=== PATIENT | male | born 1965 | race Caucasian/White ===

== ENCOUNTER → 2019-02-13 14:06 | Outpatient (CLI) | payer OTHER, SELFPAY ==
[2019-02-13 14:34] LABS: Add Manual Diff / Slide Review NO; Basophils Absolute Auto 100 /uL (0-100); Basophils Percent Auto 0.9 % (0-2); Eosinophils Absolute Auto 100 /uL (0-450); Eosinophils Percent Auto 1.1 % (2-4); Hematocrit 44.6 % (41-53); Hemoglobin 14.8 g/dL (13.5-17.5); Lymphocytes Absolute Auto 1100 /uL (1100-4500); Lymphocytes Percent Auto 14.4 % (25-40); Mean Corpuscular HGB Conc 33.2 % (30-36); Mean Corpuscular Hemoglobin 31.2 PG (26-34); Monocytes Absolute Auto 900 /uL (0-900); Monocytes Percent Auto 11.3 % (3-14); Neutrophils Absolute Auto 5500 /uL (1500-7000); Neutrophils Percent Auto 72.3 % (50-75); Platelet Count 142 X10^3/uL (150-400); Red Blood Cell Count 4.75 X10^6/uL (4.5-5.9); White Blood Cell Count 7.6 X10^3/uL (4.5-11.0)
== END ==
PROVIDERS: Orthopaedic Surgery Orthopaedic Surgery of the Spine; PCP Preventive Medicine Public Health & General Preventive Medicine; Visit Provider Preventive Medicine Public Health & General Preventive Medicine
DX: Z01.818 Encounter for other preprocedural examination (principal); L45 Papulosquamous disorders in diseases classified elsewhere
CPT/HCPCS: 36415; 85025

== ENCOUNTER 2019-02-21 10:50 | Day surgery (SDC) | payer OTHER, SELFPAY ==
[2019-02-14 14:45] VITALS: BMI 32.1
[2019-02-21] VITALS (10 sets, daily range): BP systolic 127–166; BP diastolic 77–98; PULSE 83–100; RESP 12–20; TEMP 36.2–36.8; O2SAT 92–97; BMI 31.3
--- NOTE | 2019-02-21 | DI.RAD.S_ITS ---
PROCEDURE: XR LUMBAR SPINE 2-3V INDICATIONS: L4-5 LAMINECTOMY TECHNIQUE: 2 intraoperative fluoroscopic views of the lumbar spine were acquired. COMPARISON: None. FINDINGS: Intraoperative fluoroscopic images of lower lumbar spine shows surgical instrument placed in left posterior aspect of L4-5 level. IMPRESSION: Fluoroscopy guidance was provided intraoperatively for L4-5 laminectomy. Dictated by: Sedrick Champion M.D. on 02/21/2019 at 15:28 Approved by: Sedrick Champion M.D. on 02/21/2019 at 15:31
[2019-02-21] MEDS: LACTATED RINGERS 1,000 ML 42 ML IV ×2 (11:51→13:43)
[2019-02-21] MEDS: MIDAZOLAM 2 MG/2 ML VIAL IV (12:34)
[2019-02-21] MEDS: CEFAZOLIN 2 GM/100 ML FROZ.PIGGY IV (12:50)
--- NOTE | 2019-02-21 13:05 | SUR.PREOP ---
pt 02 stats remained between 92-95% on room air after iv versed given. pt alert and talking to rn until being taken into the OR by [facility].
--- NOTE | 2019-02-21 13:17 | SUR.OPER ---
Prone on spine table, head in foam head support, padded chest and pelvic supports, gel pad at knees, lower legs supported by pillows; nipples, genitalia and toes free of pressure, arms secured on foam padded arm boards at <90 degrees abduction. Tape over blanket at thigh secured to table.
[2019-02-21] MEDS: methylPREDNISolone acet DEPO 40 MG/ML VIAL INJ (13:24)
[2019-02-21] MEDS: BUPIVACAINE 0.25% W/ EPI (PF) 10 ML VIAL INJ (13:24)
--- NOTE | 2019-02-21 14:09 | P.OP_ITS ---
Operative Date/Time/Diagnoses Date of procedure: 02/21/19 Time of procedure: 13:06 Pre-op diagnosis: 1. L4-5 disc herniation 2. L4-5 spinal stenosis Post-op diagnosis: same Procedure & Clinicians Procedure: 1. L4-5 left microdiscectomy 2. Utilization of microsurgical technique and operating microscope Same procedure as scheduled: Yes Indications: Patient has been having chronic back pain and worsening lumbar radiculopathy. Patient failed multiple conservative management with worsening pain weakness and numbness in her lower extremity. Patient has been having difficulty performing activity of daily living. After discussing risks benefits of treatment options, patient elected proceed with surgery. Surgeon: Tino Grimm Senior Staff Accountant: Beti Allen Click Yes if Unassisted: No Anesthesia Type: General Operative Notes Closure Type: primary Specimen(s): none sent Estimated Blood Loss (mL): 10 Blood products transfused: none Procedure in detail: Patient was seen in the preoperative area. Risks and benefits of the surgery was discussed with the patient. Informed consent was obtained from the patient and placed in the chart. Surgical site was marked. Patient was taken to the operative room. General anesthesia was administered. Prophylactic antibiotic was given to the patient less than 30 min before the incision was made. Patient was placed into a prone position on the Carlos A table. Patient's back was then prepped and draped in the sterile fashion. Time- out was performed at this time. Using AP and lateral C-arm imaging the interval between L4-5 was identified and marked on patient's back. A 1 inch incision 1 in from midline was made on the left side. The fascia was incised in line with skin incision. Globus MARS retractors was placed inside the incision and docked onto the L4 lamina. Using microsurgical technique and operating microscope, a L4-5 laminotomy was performed using a Kerrison rongeur. Liagamentum flavum was resected at the site of the laminotomy. The disc space at L4-5 was identified. Microdiscectomy was performed by incising the annulus with #11 blade. Microcurettes and pituitary was used to removed herniated disc fragments of disc from the epidural space. After the microdiskectomy was completed, the area medial lateral superior and inferior to the area of the microdiskectomy was inspected and explored using a micro curette. No other impinging structure was identified. The wound was then irrigated with sterile normal saline. 40 mg Depo-Medrol was placed into the epidural space. The deep fascia was closed with 1-0 Vicryl. The subcutaneous tissue was closed with 2-0 Vicryl. The skin was closed with 4-0 Monocryl. Patient tolerated the procedure well. There were no complications. Patient was transferred recovery room in stable condition. Complications: none Condition: stable Disposition: PACU Plan for aftercare: Discharge to home
[2019-02-21] MEDS: HYDROMORPHONE 2 MG INJ 0.5 MG IV ×2 (14:28→14:41)
[2019-02-21] MEDS: OXYCODONE/ACETAMINOPHEN 5/325 TABLET 1 TAB PO ×2 (15:04→15:34)
--- NOTE | 2019-02-21 15:32 | SUR.PHASEI ---
Pt received 100mg of dilaudid for pain score of 7-6/10. Upon reassessing, pt rated pain 4/10 so after consuming crackers and water, 1 percocet was administered per MD orders. Pt was then transferred to Phase II where he rated his pain 3/10.
== END 2019-02-21 16:42 | disposition home or self-care (01) ==
PROVIDERS: PCP Preventive Medicine Public Health & General Preventive Medicine; Visit Provider Orthopaedic Surgery Orthopaedic Surgery of the Spine
PROC: (CPT 63030; principal; 2019-02-21 12:15)
DX: M51.16 Intervertebral disc disorders with radiculopathy, lumbar region (principal); M48.061 Spinal stenosis, lumbar region without neurogenic claudication; V91.82XA Other injury due to other accident to fishing boat, initial encounter
CPT/HCPCS: 63030; 72100; 76000; J0330; J0690; J1030; J1100; J1170; J2250; J2405; J2704; J3010

== ENCOUNTER → 2020-06-01 09:26 | Outpatient (CLI) | payer OTHER, SELFPAY ==
--- NOTE | 2020-06-01 | DI.US.S_ITS ---
PROCEDURE: US ABDOMEN LIMITED INDICATIONS: PERIUMBILIC MASS/SWELLING TECHNIQUE: Real-time focused scanning was performed of the abdomen, with image documentation. COMPARISON: None. FINDINGS: Scanning is performed at the area of clinical concern at the umbilicus. At this site, there is a periumbilical hernia, which is more pronounced with Valsalva maneuver and measures nearly 3 centimeters. This hernia appears to contain fat. IMPRESSION: Paraumbilical hernia seen, which appears to contain fat. This is worse with Valsalva maneuver. Dictated by: Jorge Duggan M.D. on 06/01/2020 at 10:07 Approved by: Jorge Duggan M.D. on 06/01/2020 at 10:09
[2020-06-01 10:05] LABS: Add Manual Diff / Slide Review NO; Basophils Absolute Auto 100 /uL (0-100); Basophils Percent Auto 1.8 % (0-2); Eosinophils Absolute Auto 100 /uL (0-450); Eosinophils Percent Auto 0.9 % (2-4); Hematocrit 37.3 % (41-53); Lymphocytes Absolute Auto 800 /uL (1100-4500); Lymphocytes Percent Auto 12.3 % (25-40); Mean Corpuscular HGB Conc 32.1 % (30-36); Mean Corpuscular Hemoglobin 23.1 PG (26-34); Mean Corpuscular Volume 71.8 fL (80-100); Monocytes Absolute Auto 500 /uL (0-900); Monocytes Percent Auto 7.9 % (3-14); Neutrophils Absolute Auto 5300 /uL (1500-7000); Neutrophils Percent Auto 77.1 % (50-75); Platelet Count 328 X10^3/uL (150-400); White Blood Cell Count 6.8 X10^3/uL (4.5-11.0)
[2020-06-01 10:44] LABS: Alanine Aminotransferase 31 IU/L (<50); Albumin 4.9 g/dL (3.5-5.0); Albumin Globulin Ratio 1.6 (1.0-2.8); Alkaline Phosphatase 66 U/L (38-126); Aspartate Aminotransferase 29 IU/L (17-59); BUN Creatinine Ratio 10.7 (6-22); Bilirubin Total 0.7 mg/dL (0.2-1.3); Blood Urea Nitrogen 8 mg/dL (9-20); Calcium 10.3 mg/dL (8.4-10.2); Carbon Dioxide 31 mmol/L (22-32); Chloride 97 mmol/L (98-107); Cholesterol 209 mg/dL (140-199); Estimated Glomerular Filt Rate > 60.0 mL/min (>60); Glucose 96 mg/dL (70-100); HEMOLYSIS < 15 (0-50); Potassium 5.1 mmol/L (3.4-5.1); Sodium 137 mmol/L (137-145); Total Protein 7.9 g/dL (6.3-8.2); Triglycerides 74 mg/dL (35-150)
[2020-06-01 11:01] LABS: HDL Cholesterol 119 mg/dL (40-60); LDL Cholesterol Calculated 75 mg/dL (<100)
[2020-06-01 12:27] LABS: TSH w/ Reflex to FT4 1.14 uIU/mL (0.47-4.68)
[2020-06-02 09:45] LABS: HEMOLYSIS < 15 (0-50); Iron 30 ug/dL (49-181)
[2020-06-02 09:56] LABS: Percent Iron Saturation 7 % (20-50); Total Iron Binding Capacity 456 ug/dL (261-462); Transferrin 383 mg/dL (206-381)
[2020-06-02 10:22] LABS: Ferritin 9 ng/mL (18-464)
[2020-06-02 10:52] LABS: Folate 6.4 ng/mL (2.76-20.0)
[2020-06-04 11:10] LABS: Percent Free Testosterone 1.87 % (1.50-4.20); Testosterone Free 12.38 ng/dL (5.00-21.00); Testosterone Total 662.1 ng/dL (264.0-916.0)
== END ==
PROVIDERS: PCP Student in an Organized Health Care Education/Training Program; Referring Provider Student in an Organized Health Care Education/Training Program; Visit Provider Student in an Organized Health Care Education/Training Program
DX: R19.05 Periumbilic swelling, mass or lump (principal); K42.9 Umbilical hernia without obstruction or gangrene; D64.9 Anemia, unspecified; E66.9 Obesity, unspecified; R63.5 Abnormal weight gain
CPT/HCPCS: 36415; 76705; 80053; 80061; 82728; 82746; 83540; 83550; 84402; 84403; 84443; 85025

== ENCOUNTER 2020-06-17 09:37 | Day surgery (SDC) | payer OTHER, SELFPAY ==
--- NOTE | 2020-06-17 | PATH_ITS ---
[facility] Accession Number: [id number] . 01 Material submitted: . PART A: ileo-cecal valve - ILEOCECAL VALVE PART B: body - POLYP AT 70CM . 02 Diagnosis: A. Ileocecal Valve, Biopsy: Tubular adenoma. . B. Colon, Polyp at 70 cm, Biopsy: Tubular adenoma. [facility] 06/21/2020 0941 Local . 02 Electronically signed: . Rosa Mccormick MD, Pathologist NPI- [id number] . 01 Gross description: . A. Specimen A is received in formalin, labeled ileocecal valve and consists of multiple cruz fragments of soft tissue, measuring 1.0 x 1.0 x 0.2 cm in aggregate. The specimen is entirely submitted in cassette A1. B. Specimen B is received in formalin, labeled polyp at 70 cm and consists of three cruz fragments of soft tissue, measuring 0.6 x 0.5 x 0.2 cm in aggregate. The specimen is entirely submitted in cassette B1. ([id number]) /[facility] 06/18/2020 1610 Local . 02 Pathologist provided ICD-10: D12.6, D12.0 . 02 CPT . 125625, [id number] Performed at: 01 [facility] [address], [place], [place] [id number] MD Michele Walsh MD Phone: [phone] Performed at: 02 [facility] [address] [place], [place] [id number] MD Rosa Mccormick MD Phone: [phone]
[2020-06-17 09:47] VITALS: BP 128/78; PULSE 61; RESP 16; TEMP 36.3; O2SAT 97; BMI 31.1
[2020-06-17] MEDS: LACTATED RINGERS 1,000 ML 42 ML IV (10:04)
--- NOTE | 2020-06-17 11:39 | PM.HP.1 ---
History of Present Illness History of Present Illness Date Patient Seen: 06/17/20 Time Patient Seen: 11:40 Chief complaint: SCREENING COLONOSCOPY Narrative: The patient is a gentleman here for screening colonoscopy. This is his 1st exam. He is adopted and does not know his family history. Patient History Medical History Back injury (Acute 12/24/18) Ganglion cyst of dorsum of left wrist (Acute ~2016) Family & Social History Social History: household members none Tobacco & Substance use: Smoking Status Former smoker alcohol intake current alcohol intake frequency a few times a month Substance Use Type does not use Meds Home Medications and Allergies Home Medications Medication Instructions Recorded Confirmed Type No Known Home Medications 02/21/19 06/17/20 History Allergies Allergy/AdvReac Type Severity Reaction Status Date / Time No Known Drug Allergies Allergy Verified 06/17/20 09:46 Review of Systems Review of Systems ROS: Yes All systems reviewed with the patient and are negative except as otherwise documented Exam Vital Signs (past 8 hours): - 06/17/20 09:47 Temperature 97.4 F L Pulse Rate 61 Respiratory Rate 16 Blood Pressure 128/78 Pulse Oximetry 97 Oxygen Delivery Method Room Air Narrative Exam Narrative: Pleasant cooperative patient no apparent distress. Lungs are clear to auscultation. No rales or rhonchi. Heart regular rate and rhythm no murmur gallop. Abdomen is soft nontender without mass. The patient has a tender umbilical hernia. Probably reducible. I did push on it hard enough to try to get it to go in.. Patient is alert and oriented x3. Assessment & Plan Assessment & Plan narrative: The patient for a screening colonoscopy. I have discussed the procedure with them. Risks of bleeding, perforation which would necessitate major operation, failure to find remove all lesions, the potential tattoo were all discussed. All questions were answered. They wished to proceed.
--- NOTE | 2020-06-17 11:42 | PM.PREOP ---
Pre-operative Note COVID-19 COVID-19 status: Negative Result date/Date tested (Pos, Neg/Pending): 06/14/20 Interval Note History & Physical reviewed/Exam performed by Physician: Yes Changes to H&P: No ASA Class (for procedural sedation): I
[2020-06-17] MEDS: fentaNYL 250 MCG/5 ML INJ IV (11:47)
[2020-06-17] MEDS: MIDAZOLAM 5 MG/5 ML VIAL IV (11:48)
--- NOTE | 2020-06-17 12:16 | PM.OP.ENDO ---
Operative Date/Time/Diagnoses Date of procedure: 06/17/20 Time of procedure: 12:16 Pre-op diagnosis: Screening exam due to age. He is 54. This is his 1st colonoscopy. Procedure & Clinicians Study performed: Colonoscopy with cold biopsy Same procedure as scheduled: Yes Indications: Screening for colon cancer Surgeon: Gilberto Cazares Procedure Notes SCOAP/Timeout: Perform Procedure in detail: The patient was placed in the left lateral decubitus position and underwent IV sedation directed by the surgeon consisting of fentanyl and Versed. Digital exam was unremarkable. Prostate is flat.. The scope was inserted and advanced through the rectum into the sigmoid, descending, transverse, and ascending colon. The patient with small polyp in his ascending colon near the cecum. I biopsied and removed it.. The cecum was reached identified by the ileocecal valve and the appendiceal opening. There was and nodule on the lip of the ileocecal valve which I biopsied. I suspect it is a normal variant but I just wanted to make sure. I did not attempt to remove the whole area.. The scope was gradually brought out. A Polyp was found at 70 cm from the anal verge. It was biopsied and removed. The scope was gradually brought into the rectum and retroflexed. The retro flexed view was normal. The prep was very good. Patient tolerated the procedure well Scope withdrawal time: 9 minutes(13 total) Sedation minutes: 25 Findings: polyp (Two small polyps) Specimen(s): other (Ascending colon polyp was placed with a biopsy of the ileocecal valve. The other polyp was sent separately.) Complications: none Post-procedure Recommendations: Colonscopy in 5 years (If none of the biopsies are adenomatous then 10 years would be more appropriate.) Follow up: as needed Disposition: PACU
[2020-06-17 12:18] VITALS: BP 134/79; PULSE 87; RESP 24; TEMP 36.7; O2SAT 96
[2020-06-17 12:23] VITALS: BP 128/93; PULSE 94; RESP 18; O2SAT 95
[2020-06-17 12:28] VITALS: BP 127/83; PULSE 95; RESP 20; O2SAT 97
== END 2020-06-17 12:50 | disposition home or self-care (01) ==
PROVIDERS: PCP Student in an Organized Health Care Education/Training Program; Referring Provider Specialist; Visit Provider Specialist
PROC: 0DJD8ZZ Inspection of Lower Intestinal Tract, Via Natural or Artificial Opening Endoscopic (ICD-10-PCS; CPT 45378; principal; 2020-06-17 10:45)
DX: Z12.11 Encounter for screening for malignant neoplasm of colon (principal); D12.6 Benign neoplasm of colon, unspecified; D12.0 Benign neoplasm of cecum
CPT/HCPCS: 45380; 99152; J2250; J3010

== ENCOUNTER 2020-07-19 07:32 | Day surgery (SDC) | payer OTHER, SELFPAY ==
[2020-07-16 09:36] VITALS: BMI 30.4
[2020-07-19] VITALS (11 sets, daily range): BP systolic 135–156; BP diastolic 81–109; PULSE 73–88; RESP 11–23; TEMP 36.2–37.2; O2SAT 92–96; BMI 30.2
[2020-07-19] MEDS: LACTATED RINGERS 1,000 ML 100 ML IV ×2 (08:05→09:49)
[2020-07-19] MEDS: CEFAZOLIN 2 GM/100 ML FROZ.PIGGY IV (08:55)
--- NOTE | 2020-07-19 08:56 | PM.HP.1 ---
History of Present Illness History of Present Illness Date Patient Seen: 07/19/20 Time Patient Seen: 08:35 Chief complaint: UMBILICAL HERNIA REPAIR Narrative: The patient is a gentleman with an umbilical hernia brought in for repair. Patient History Medical History Back injury (Acute 12/24/18) Ganglion cyst of dorsum of left wrist (Acute ~2016) Surgical History History of esophagogastroduodenoscopy (EGD) (Acute 06/17/20) Hx of microdiscectomy (Acute 02/21/19) Family & Social History Social History: household members none Tobacco & Substance use: Smoking Status Former smoker alcohol intake current alcohol intake frequency a few times a month Substance Use Type does not use Meds Home Medications and Allergies Home Medications Medication Instructions Recorded Confirmed Type No Known Home Medications 02/21/19 07/19/20 History Allergies Allergy/AdvReac Type Severity Reaction Status Date / Time No Known Drug Allergies Allergy Verified 07/19/20 07:50 Review of Systems Review of Systems ROS: Yes All systems reviewed with the patient and are negative except as otherwise documented Exam Vital Signs (past 8 hours): - 07/19/20 07:56 Temperature 99.0 F Pulse Rate 88 Respiratory Rate 16 Blood Pressure 150/96 H Pulse Oximetry 96 Oxygen Delivery Method Room Air Narrative Exam Narrative: Pleasant cooperative patient no apparent distress. Lungs are clear to auscultation. No rales or rhonchi. Heart regular rate and rhythm no murmur gallop. Abdomen is soft nontender without mass. Patient has a an umbilical hernia that is tender with attempts at reduction. Skin is attenuated over it. Patient is overweight with a BMI of 30. No obvious hernias. Patient is alert and oriented x3. Assessment & Plan Assessment & Plan narrative: I have discussed repair with him. Risks of bleeding, infection, recurrence were discussed. Restrictions after the procedure discussed. All questions were answered. He wished to proceed.
--- NOTE | 2020-07-19 08:57 | PM.PREOP ---
Pre-operative Note COVID-19 COVID-19 status: Negative Result date/Date tested (Pos, Neg/Pending): 07/16/20 Interval Note History & Physical reviewed/Exam performed by Physician: Yes Changes to H&P: No
[2020-07-19] MEDS: BUPIVACAINE 0.5% (PF) VIAL 30 ML INJ (09:26)
[2020-07-19] MEDS: OXYCODONE/ACETAMINOPHEN 5/325 TABLET 1 TAB PO ×2 (10:18→11:19)
[2020-07-19] MEDS: fentaNYL 100 MCG/2 ML INJ IV (10:31)
--- NOTE | 2020-07-29 17:36 | PM.OP.1 ---
Operative Date/Time/Diagnoses Date of procedure: 07/19/20 Time of procedure: 10:31 Pre-op diagnosis: Umbilical hernia reducible Post-op diagnosis: same Procedure & Clinicians Procedure: Repair with underlay of mesh Same procedure as scheduled: Yes Indications: Symptomatic hernia Surgeon: Gilberto Cazares Click Yes if Unassisted: Yes Anesthesia Type: General Operative Notes Findings: Small defect. 1.7 in circular mesh placed under the defect Closure Type: primary Specimen(s): none sent Prosthetic devices, grafts, tissues, transplants, or devices: Mesh Estimated Blood Loss (mL): 5 Blood products transfused: none Procedure in detail: Patient was placed supine on the operating room table and underwent general LMA anesthesia. He was prepped and draped in the usual fashion. Curvilinear incision was made in the area of the umbilicus and carried down level the fascia. The fascial edge was cleared and the contents of the hernia sac were reduced. The sac was removed and the fascial edge cleared. An area under the abdominal fascia was cleared to allow for placement of a piece of mesh. A circular mesh was placed under it and it was incorporated into the fascial closure. This was accomplished with 1. Ethibond sutures. Subcu was closed with interrupted 3 0 Vicryl. Skin was closed with 4-0 Vicryl subcuticular stitch and Steri-Strips. Complications: none Post-operative Condition: stable Disposition: PACU
== END 2020-07-19 11:42 | disposition home or self-care (01) ==
PROVIDERS: PCP Student in an Organized Health Care Education/Training Program; Referring Provider Student in an Organized Health Care Education/Training Program; Visit Provider Specialist
PROC: (CPT 49585; principal; 2020-07-19 09:15)
DX: K42.9 Umbilical hernia without obstruction or gangrene (principal)
CPT/HCPCS: 49585; C1781; J0690; J1100; J1885; J2250; J2405; J2704; J3010